=== PATIENT | male | born 1985 | race Caucasian/White ===

== ENCOUNTER 2019-02-05 12:42 | Outpatient (CLI) | payer BC ==
--- NOTE | 2019-02-05 12:59 | RAD ---
Exam: XR Wrist 3 Rt View STANDARD HISTORY: Right wrist pain for past week secondary to softball injury. COMPARISON: None FINDINGS: There is a osseous density seen dorsal to the carpal bones on the lateral projection suggesting an av ulsion fracture involving the triquetral bone. There is small amount of overlying subcutaneous soft tissue swelling. No additional fracture is seen, and there is no dislocation seen. IMPRESSION: Evidence for triquetral bone fracture. Correlation for point tenderness at the dorsal aspect of the w rist at the level of the carpal bones is recommended.
== END 2019-02-05 12:43 | disposition home or self-care (01) ==
LOC: SCSRAD 12:42
PROVIDERS: ATTEND Family Medicine
DX: M77.8 Other enthesopathies, not elsewhere classified (principal); S62.111A Displaced fracture of triquetrum [cuneiform] bone, right wrist, initial encounter for closed fracture